=== PATIENT | female | born 1965 | race Caucasian/White ===

== ENCOUNTER 2021-05-20 11:13 | Emergency (ER) | payer OTHER ==
[2021-05-20 13:34] LABS: BASOPHIL 1.1 % (0-2); EOSINOPHIL 2.5 % (0-5); HCT 48.2 % (37.0-47.0); MCH 30.2 pg (25.0-31.0); MCHC 33.2 g/dL (32.0-36.0); MCV 90.9 fL (78.0-100.0); MONOCYTE 5.4 % (0-12); MPV 10.6 fL (6.0-9.5); NEUTROPHIL 54.9 % (41-80); NRBC 0; PLT 246 K/uL (150-400); RDW 12.9 % (11.5-14.0); WBC 8.2 K/uL (4.0-10.5)
[2021-05-20 13:50] LABS: BUN/CREAT RATIO (CALC) 11.1 RATIO; CREATININE 0.72 mg/dL (0.51-0.95); POTASSIUM 3.9 mmol/L (3.5-5.1)
[2021-05-20 14:26] LABS: BILIRUBIN NEGATIVE (NEGATIVE); BLOOD 1+ Ery/uL (NEGATIVE); CLARITY CLEAR (CLEAR); COLOR YELLOW (YELLOW); GLUCOSE (U) NORMAL (NORMAL); LEUKOCYTES NEGATIVE Leu/uL (NEGATIVE); NITRITE NEGATIVE (NEGATIVE); PROTEIN NEGATIVE (NEGATIVE); SPECIFIC GRAVITY 1.025 (1.001-1.030); UROBILINOGEN 0.2 mg/dL (0.2-1.0)
[2021-05-20 14:37] LABS: MUCOUS TRACE; URINARY RBC RARE
[2021-05-20] MEDS ORDERED: ONDANSETRON ODT4 MG PO (17:07)
[2021-05-20] MEDS ORDERED: NORCO 5-325 TA1 EACH PO (17:07)
[2021-05-20] MEDS ORDERED: CYCLOBENZAPRINE10 MG PO (17:07)
== END 2021-05-20 17:21 | disposition home or self-care (01) ==
LOC: FER 11:13
PROVIDERS: Internal Medicine
DX: N80.1 Endometriosis of ovary (principal); I10 Essential (primary) hypertension; F17.210 Nicotine dependence, cigarettes, uncomplicated; Z79.899 Other long term (current) drug therapy
CPT/HCPCS: 36415; 76830; 80048; 81001; 85025; J1170; J2405